=== PATIENT | female | born 1950 | race Caucasian/White ===

== ENCOUNTER 2018-11-04 09:26 | Outpatient (CLI) | payer MEDICARE ==
--- NOTE | 2018-11-04 17:04 | DEXA Report ---
Reason: AGE RELATED OSTEOPOROSIS WITHOUT CURRENT PATHOLOGI Procedure Date: 11/04/2018 Accession Number: [id number] / [id number] Procedure: DEX - Dexa Spine and/or Hip CPT Code: FULL RESULT: EXAM: Dexa Spine and/or Hip DATE: 11/04/2018 9:54 AM CLINICAL HISTORY: AGE RELATED OSTEOPOROSIS WITHOUT CURRENT PATHOLOGY TECHNIQUE: Dual energy x-ray absorptiometry (DXA) was performed on a [employer] System. Regions measured are the AP Spine, femoral neck, and if needed forearm. COMPARISON: None. In accordance with the International Society for Clinical Densitometry (ISCD) guidelines, data from previous exams may be reanalyzed using current recommendations and techniques. This is done to allow a more accurate basis for comparison with the current study. FINDINGS: The data for the lumbar spine is as follows: BMD (g/cm/cm) T-SCORE Z-SCORE REGION L1 0.732 -3.3 -1.4 L2 0.772 -3.6 -1.7 L3 0.916 -2.4 -0.5 L4 0.856 -2.9 -1.0 TOTAL 0.823 -3.0 -1.1 NOTE: All evaluable vertebrae are used for classification The data for the hip is as follows: BMD (g/cm/cm) T-SCORE Z-SCORE REGION Neck 0.596 -3.2 -1.4 TOTAL 0.624 -3.0 -1.4 NOTE: The femoral neck or total proximal femur, whichever is lowest, is used for classification. IMPRESSION: THE WHO CLASSIFICATION BASED ON THE INTERNATIONAL REFERENCE STANDARD IS OSTEOPOROSIS. THE FRACTURE RISK IS HIGH. RECOMMENDATION: Patients with diagnosis of osteoporosis or osteopenia should have regular bone mineral density assessment. For those eligible for Medicare, routine testing is allowed once every 2 years. Testing frequency can be increased for patients who have rapidly progressing disease or for those who are receiving medical therapy to restore bone mass. COMMENT: World Health Organization (WHO) definitions for osteoporosis and osteopenia: NORMAL BMD: T-score at -1.0 or higher, fracture risk is low OSTEOPENIA BMD: T-score between -1.0 and -2.5, fracture risk is increased. OSTEOPOROSIS BMD: T-score at -2.5 or lower, fracture risk is high. National Osteoporosis Foundation recommends: 1. Obtain adequate dietary calcium (at least 1200 mg per day) and vitamin D (400-800 international units per day). 2. Participate, as appropriate, in regular weightbearing and muscle-strengthening exercise. 3. Avoid tobacco use and reduce alcohol and caffeine intake. 4. For more detailed information see the website at www.NOF.org.
== END 2018-11-04 09:27 | disposition home or self-care (01) ==
LOC: DI 09:26
PROVIDERS: ATTEND Family Medicine
DX: M81.0 Age-related osteoporosis without current pathological fracture (principal)
CPT/HCPCS: 77080

== ENCOUNTER 2019-08-02 09:21 | Outpatient (CLI) | payer MEDICARE ==
--- NOTE | 2019-08-02 20:57 | XRAY Report ---
Reason: CHRONIC NECK PAIN Procedure Date: 08/02/2019 Accession Number: [id number] / [id number] Procedure: XR - Cervical Spine 2 View CPT Code: FULL RESULT: EXAM: CERVICAL SPINE RADIOGRAPHY EXAM DATE: 08/02/2019 09:36 AM. CLINICAL HISTORY: CHRONIC NECK PAIN. COMPARISONS: None. TECHNIQUE: 3 views. FINDINGS: Alignment: No scoliosis. No significant listhesis. Straightening of the cervical lordosis. Bones: The cervical vertebral bodies and posterior elements are well visualized from the skull base through C7-T1. No fractures or bone lesions. Disks: Severe disk space narrowing at C5-C6 and C6-C7 and less so at C4-C5 with moderate narrowing at C3-C4. Mild multilevel anterior vertebral body spurring. Facets: Mild to moderate bilateral multilevel degenerative disease, most evident on the left at C3-C4. Soft Tissues: Normal. No prevertebral soft tissue swelling. The visualized lung apices are clear. IMPRESSION: 1. No definite acute abnormality. 2. Moderate to severe multilevel degenerative disk disease. 3. Mild to moderate degenerative facet disease. RADIA
== END 2019-08-02 09:22 | disposition home or self-care (01) ==
LOC: DI 09:21
PROVIDERS: ATTEND Family Medicine
DX: M50.31 Other cervical disc degeneration, high cervical region (principal); M48.02 Spinal stenosis, cervical region
CPT/HCPCS: 72040

== ENCOUNTER 2022-03-03 08:00 | Outpatient (CLI) | payer MEDICARE ==
--- NOTE | 2022-03-03 12:07 | XRAY Report ---
PROCEDURE: Ankle 3 View LT INDICATIONS: SPRAIN OF LEFT ANKLE TECHNIQUE: 3 views of the ankle were acquired. COMPARISON: 04/09/2013 FINDINGS: Bones: No fractures or dislocations. Ankle mortise is normally aligned. No suspicious bony lesions . Soft tissues: Mild ankle soft tissue swelling is seen. No tibiotalar joint effusion. Achilles tendo n appears normal. IMPRESSION: Ankle mortise is congruent. No ankle fracture or dislocation. Mild ankle soft tissue swe lling. Reviewed by: Jonathan Greene MD on 03/03/2022 12:05 PM PDT Approved by: Jonathan Greene MD on 03/03/2022 12:05 PM PDT Station ID: [id number]
== END 2022-03-03 23:59 | disposition home or self-care (01) ==
LOC: DI.S 08:00
PROVIDERS: ATTEND Physician Assistant Medical
DX: S93.492A Sprain of other ligament of left ankle, initial encounter (principal)

== ENCOUNTER 2022-07-24 07:31 | Outpatient (CLI) | payer MEDICARE ==
--- NOTE | 2022-07-24 12:35 | Mammography Report ---
BILATERAL DIGITAL DIAGNOSTIC MAMMOGRAM 3D/2D: 07/24/2022 CLINICAL: Diffuse left breast pain. Comparison is made to exam dated: 11/14/2013 mammogram - [facility]. Both breasts are almost entirely fatty (category a/<25% glandular tissue). No significant masses, calcifications, or other findings are seen in either breast. No abnormality which corresponds with the area of pain is identified. IMPRESSION: NEGATIVE There is no abnormality seen in the left breast to correspond with the area of clinical concern and p ain. There is no mammographic evidence of malignancy. A 1 year screening mammogram is recommended. Based on the Tyrer Cuzick model (a risk assessment model) the patients lifetime risk is 3.4% and her 10 year risk is 2.8%. According to the ACR, ACS, and NCCN guidelines, an annual breast MRI exam susana g with mammogram is recommended if the patients lifetime risk is 20% or greater. This exam was interpreted at Station ID: [id number]. NOTE: For mammograms, a report in lay terms will be sent to the patient. Approximately 15% of breast malignancies will not be visualized mammographically. In the management of a palpable breast mass, a negative mammogram must not discourage biopsy of a clinically suspicious lesion. Electronically Signed By: Artemio Vega acr/:07/24/2022 08:45:29 ACR BI-RADS Category 1: Negative 3341F PARENCHYMAL PATTERN: (F) - The breast(s) demonstrate(s) diffuse fatty replacement. BI-RADS CATEGORY: (1) - 1 RECOMMENDATION: (ANNUAL) - Recommend routine annual screening mammography. [id number] 1 year screening LATERALITY: (B)
== END 2022-07-24 07:32 | disposition home or self-care (01) ==
LOC: DI 07:31
PROVIDERS: ATTEND Nurse Practitioner Family
DX: N64.4 Mastodynia (principal)

== ENCOUNTER 2022-07-24 07:50 | Outpatient (CLI) | payer MEDICARE ==
--- NOTE | 2022-07-24 11:15 | Ultrasound Report ---
PROCEDURE: Duplex Ext Veins Left INDICATIONS: LEFT THIGH PAIN TECHNIQUE: Real-time imaging, as well as color and pulse Doppler interrogation, were performed of the lower extr emity deep veins from the inguinal ligament to the popliteal fossa. COMPARISON: None. FINDINGS: The deep veins are normally compressible, and free of intraluminal thrombus. Color and pu lse Doppler demonstrate normal phasic intraluminal flow. There is normal augmentation response to di stal compression maneuver. A 3.6 cm popliteal cyst is present, possibly a Soares's cyst. IMPRESSION: 1. No evidence of deep venous thrombosis in the left lower extremity. 2. A 3.6 cm popliteal cyst is present, possibly a Soares's cyst. Reviewed by: Rob Rhoades MD on 07/24/2022 11:14 AM PDT Approved by: Rob Rhoades MD on 07/24/2022 11:14 AM PDT Station ID: [id number]
== END 2022-07-24 07:51 | disposition home or self-care (01) ==
LOC: DI 07:50
PROVIDERS: ATTEND Nurse Practitioner Family
DX: M79.652 Pain in left thigh (principal); M71.22 Synovial cyst of popliteal space [Baker], left knee

== ENCOUNTER 2022-10-02 10:15 | Outpatient (CLI) | payer MEDICARE ==
--- NOTE | 2022-10-02 18:08 | Ultrasound Report ---
PROCEDURE: Aorta Screening INDICATIONS: SCREENING FOR CARDIOVASCULAR DISEASE TECHNIQUE: Real time scanning was performed of the aorta and iliac arteries, with image documentatio n. COMPARISON: None FINDINGS: Aorta: Proximal aortic diameter measures 2.3 x 2.3 cm. Mid-aorta measures 1.6 x 1.7 cm. Distal aor tic diameter is 1.4 x 1.4 cm. Moderate luminal irregularity due to atherosclerotic plaque. Iliac arteries: Right common iliac artery measures 1.2 x 1.2 cm. Left common iliac artery measures 1.0 x 1.0 cm. IMPRESSION: No evidence of abdominal aortic or common iliac artery aneurysm. Reviewed by: Tanya Murrell MD on 10/02/2022 6:07 PM PST Approved by: Tanya Murrell MD on 10/02/2022 6:07 PM PST Station ID: [id number]
== END 2022-10-02 10:16 | disposition home or self-care (01) ==
LOC: DI 10:15
PROVIDERS: ATTEND Nurse Practitioner Family
DX: Z13.6 Encounter for screening for cardiovascular disorders (principal)

== ENCOUNTER 2022-10-10 08:07 | Outpatient (CLI) | payer MEDICARE ==
--- NOTE | 2022-10-10 11:44 | DEXA Report ---
PROCEDURE: Dexa Spine and/or Hip INDICATIONS: OSTEOPOROSIS TECHNIQUE: Dual energy x-ray absorptiometry (DXA) was performed on a [employer] System. Regions measur ed are the AP Spine, femoral neck, and if needed forearm. COMPARISON: DEXA 11/04/2018. FINDINGS: Lumbar Spine: Bone Mineral Density 0.868 g/cm/cm,T score -2.6, osteoporosis. Findings have mildly improved when compared to the exam from 11/04/2018. Left Hip: Bone Mineral Density 0.673 g/cm/cm,T score -2.7, osteoporosis. Findings have mildly improved when co mpared to the exam from 11/04/2018. Left Femoral Neck: Bone Mineral Density 0.603 g/cm/cm, T score -3.1, osteoporosis. (T score greater or equal to -1.0: NORMAL) (T score from -1.1 to -2.4: OSTEOPENIA) (T score less than or equal to -2.5 to: OSTEOPOROSIS) Impression: Bone mineral density within the osteoporosis range at the lumbar spine and the left hip and left femo ral neck. Findings have mildly improved when compared to the DEXA dated 11/04/2018. Patients with diagnosis of osteoporosis or osteopenia should have regular bone mineral density assess ment. For those eligible for Medicare, routine testing is allowed once every 2 years. Testing frequ ency can be increased for patients who have rapidly progressing disease or for those who are receivin g medical therapy to restore bone mass. Reviewed by: Rob Thompson MD on 10/10/2022 11:42 AM PST Approved by: Rob Thompson MD on 10/10/2022 11:42 AM PST Station ID: [id number]
== END 2022-10-10 08:08 | disposition home or self-care (01) ==
LOC: DI 08:07
PROVIDERS: ATTEND Nurse Practitioner Family
DX: M81.0 Age-related osteoporosis without current pathological fracture (principal)

== ENCOUNTER 2022-11-27 11:49 | Outpatient (CLI) | payer MEDICARE ==
--- NOTE | 2022-11-27 17:51 | XRAY Report ---
PROCEDURE: Thoracic Spine 2 View INDICATIONS: PAIN IN THORACIC SPINE TECHNIQUE: 3 views of the thoracic spine were acquired. COMPARISON: None. FINDINGS: Bones: No fractures or dislocations. No suspicious bony lesions. 12 pairs of ribs are noted, and a ppear intact where visualized. Generalized decreased osseous mineralization Soft tissues: No paravertebral stripe thickening. IMPRESSION: Osteopenia without fracture or malalignment Reviewed by: Pedro Luis Collins MD on 11/27/2022 4:50 PM AKST Approved by: Pedro Luis Clolins MD on 11/27/2022 4:50 PM AKST Station ID: [id number]
== END 2022-11-27 11:50 | disposition home or self-care (01) ==
LOC: DI 11:49
PROVIDERS: ATTEND Nurse Practitioner Family
DX: M54.6 Pain in thoracic spine (principal); M85.88 Other specified disorders of bone density and structure, other site